=== PATIENT | male | born 1950 | race Hispanic/Latino ===

== ENCOUNTER → 2019-03-09 | Outpatient (CLI) | payer MEDICARE ==
--- NOTE | 2019-03-09 10:38 | Diagnostic Imaging Report ---
EXAM: Lumbar spine radiographs-5 views; sacral radiographs-2 views INDICATION: Spondylolysis, lumbosacral. COMPARISON: None FINDINGS: BONES: There is minimal retrolisthesis of L3 on L4 and L4 on L5. No acute displaced fractures. No evidence of spondylolysis or spondylolisthesis. Vertebral body heights are preserved. DISCS: There are mild multilevel degenerative disc changes. No significant neural foraminal stenosis. JOINTS: Mild facet degenerative changes at L4-L5 and L5-S1. The sacroiliac joints are unremarkable. SOFT TISSUES: Unremarkable IMPRESSION: No acute radiographic abnormality. Mild degenerative disc and facet degenerative changes of the lumbar spine as above. Signed by: Dr. Mart Nelson MD on 03/09/2019 10:35 AM
== END ==
LOC: RAD 09:23
PROVIDERS: ATTEND Internal Medicine
DX: M43.07 Spondylolysis, lumbosacral region (principal)
CPT/HCPCS: 72110; 72220

== ENCOUNTER → 2022-08-28 | Outpatient (CLI) | payer MEDICARE | LOC: MRI 10:29 | PROVIDERS: ATTEND Internal Medicine | DX: R41.3 Other amnesia (principal) | CPT/HCPCS: 70551 ==